=== PATIENT | female | born 1955 | race Two or more races ===

== ENCOUNTER 2017-01-23 15:15 | Outpatient (RCR) | payer OTHER ==
--- NOTE | 2016-12-22 16:07 | PT PLAN OF CARE ---
Physician: JUDY Yañez Patient is being seen: 2x/Week Therapist: Madeline Harvey, PT, DPT, CLT Medical Diagnosis: Endometrioid Adenocarcinoma Treatment Diagnosis: Endometrioid Adenocarcinoma Date of Onset: 08/16/16 Date of Initial Evaluation: 08/18/16 Date patient was last seen: 12/22/16 Number of treatments: 9 Number of cancellations/No shows: 0 OBJECTIVE: Strength: LE MMT: 08/18/16: All motions tested at 5/5 excluding R hip flexion at 4+/5. LE MMT: 09/12/16: Hip: Flexion: B 4+/5, Extension: L 3+/5, R 4/5, ABD/ADD: B 5/5 , Knee: Flexion/Ext: B 5/5, Ankle: PF: L 5/5, R 4+/5, DF: B 5/5. Sensation: Sensation intact to light touch with complaints of numbness or tingling in B UE> LE. Pain: Pt reports mild neuropathic pain in fingers and toes B at this time. Other Objective Findings: ECOG Performance Level: 2 08/18/16: FACT-G Outcome Measure Score: PWB: 28/, SWB: 23, EWB: , FWB: , Total Score: 83/108 09/12/16: FACT-G Outcome Measure Score: PWB: 26/, SWB: 22.4/, EWB: 20, FWB : 18.5/, Total Score: 86.9/108 10/24/16: FACT-G Outcome Measure Score: PWB: 18/, SWB: 18.7/, EWB: , FWB: 12/23, Total Score: 65.7/108 11/14/16: FACT-G Outcome Measure Score: PWB: 19.8/, SWB: 15.4/, EWB: , FWB: 13, Total Score: 65.23/108 11/28/16: FACT-G Outcome Measure Score: PWB: 12/, SWB: , EWB: , FWB : 01/23, Total Score: 60/108 Pt reports dizziness and nausea that is present cyclically following chemotherapy intervention lasting 4-5 days before subsiding. Short Term Goals To maintain current functional status throughout oncological treatment. To maintain strength level >4/5 in all major LE muscle groups throughout treatment for functional ability to perform work and ADL's. To maintain FACT-G Total Score: >83/108 indicating maintenance of functional status. To maintain ECOG Performance Status of 2 or less throughout treatment for maintenance of function and activity for increased vitality throughout treatment. Patient's Goals Maintain function throughout oncological treatment. ASSESSMENT: Status of Patient's Goals: All In Progress Patient Compliance: Good Prognosis: Good Reasons for continuing therapy: Pt was negative for Fidel Halpike screening B as well as screening of horizontal canals. Nystagmus remains present at rest as well as with lateral gaze tracking to the L, but otherwise absent. Dizziness was present throughout treatment. Nystagmus seemed to increase with change in activity so pt BP and HR response were monitored with increased exercise resulting in good response and likely not contributing to dizziness. Recent MRI revealed orbital inflammation as well as small cerebellar tumor which could each possibly be contributing to vestibular hypofunctioning. Pt referred back to oncology [facility] for possible medical interventions to decrease orbital inflammation as well as to button clamper for screening of hearing loss from chemo toxicity. Pt to be screened at next visit for symptoms of cerebellar dysfunction. If you have any questions or concerns, please feel free to contact me at . Thank you, Madeline Harvey, PT, DPT, CLT MTDD
[~2017-01-23 15:15] MED LIST: AMOX-559 PO; DEX4 PO; IBUP200C71 PO; LEVO125T77 PO; LEVO75TA73 PO; LORA-1455 PO; ONDA8TAB94 PO; PANT40TA65 PO; SCOT TD; SERT25TA87 PO; TRIA15CR40 TP; ZOST19404 SQ
[2017-01-23] MEDS ORDERED: ONDA8TAB94 PO (15:16)
--- NOTE | 2017-01-23 17:13 | PT PLAN OF CARE ---
Physician: JUDY Yañez Patient is being seen: 1x/MO Therapist: Madeline Harvey, PT, DPT, CLT Medical Diagnosis: Endometrial Carcinoma Treatment Diagnosis: Endometrial Carcinoma, Neuropathy Date of Onset: 08/16/16 Date of Initial Evaluation: Date patient was last seen: 01/23/17 Number of treatments: 12 Number of cancellations/No shows: 1 GOALS: To maintain current functional status throughout oncological treatment. In Progress To maintain strength level >4/5 in all major LE muscle groups throughout treatment for functional ability to perform work and ADL's. MET To maintain FACT-G Total Score: >83/108 indicating maintenance of functional status. In Progress To maintain ECOG Performance Status of 2 or less throughout treatment for maintenance of function and activity for increased vitality throughout treatment. MET PATIENT'S GOAL: Maintain function throughout oncological treatment. Status of Patient's Goals: 2/4 Goals MET Patient Compliance: Good Prognosis: Good Reasons for continuing therapy: At this time pt reports that she feels that she is about 50% of her initial functional status prior to initiating treatment. Lingering deficits remain in fatigue, dizziness, neuropathy, and decreased posture coupled with pelvic dysfunction. Further treatment will focus on regaining acquired deficits as well as minimizing lingering side-effects. Pt to initiate more frequent PT following final radiation treatment in January. OBJECTIVE: Strength: LE MMT: 08/18/16: All motions tested at 5/5 excluding R hip flexion at 4+/5. LE MMT: 09/12/16: Hip: Flexion: B 4+/5, Extension: L 3+/5, R 4/5, ABD/ADD: B 5/5 , Knee: Flexion/Ext: B 5/5, Ankle: PF: L 5/5, R 4+/5, DF: B 5/5. Sensation: Sensation intact to light touch with complaints of numbness or tingling in B UE> LE. Pain: Pt reports mild neuropathic pain in fingers and toes B at this time. Other Objective Findings: ECOG Performance Level: 2 08/18/16: FACT-G Outcome Measure Score: PWB: , SWB: , EWB: 18, FWB: , Total Score: 83/108 09/12/16: FACT-G Outcome Measure Score: PWB: , SWB: 22.4, EWB: 20, FWB : 18.5, Total Score: 86.9/108 10/24/16: FACT-G Outcome Measure Score: PWB: 18, SWB: 18.7, EWB: , FWB: 12/23, Total Score: 65.7/108 11/14/16: FACT-G Outcome Measure Score: PWB: 19.8, SWB: 15.4, EWB: , FWB: , Total Score: 65.23/108 11/28/16: FACT-G Outcome Measure Score: PWB: 02/22, SWB: , EWB: , FWB : 01/23, Total Score: 60/108 01/23/17: FACT-G Outcome Measure Score: PWB: 01/23, SWB: , EWB: , FWB : , Total Score: 64/108 If you have any questions or concerns, please feel free to contact me at . Thank you, Madeline Harvey, PT, DPT, CLT MTDD
[2017-02-15] MEDS ORDERED: LEVO125T77 PO ×2 (13:29→13:30)
== END 2017-01-23 18:00 | disposition home or self-care (01) ==
LOC: PT 15:15
PROVIDERS: ATTEND Nurse Practitioner Family
DX: C54.1 Malignant neoplasm of endometrium (principal); R42 Dizziness and giddiness; R11.0 Nausea

== ENCOUNTER 2017-03-27 10:57 | Outpatient (RCR) | payer OTHER ==
[2017-01-16 10:15] LABS: PLATELET COUNT, AUTOMATED 77 K/uL (150-450)
[2017-01-16 11:39] VITALS: BP 122/82
[2017-01-23 14:40] VITALS: BP 94/65
--- NOTE | 2017-01-23 14:46 | ONC Progress Note - NP.Halsey ---
Patient History Date of Service Jan 23, 2017 Reason For Visit/HPI Patient is seen in the clinic today for follow-up of her stage IIIc 2 endometrial carcinoma. Patient has completed chemotherapy and external beam radiation therapy treatment on 01/10/2017. Patient was unable to complete weekly chemotherapy with cisplatin and did not receive 3 weeks of treatment due to absolute neutrophil count being too low. Patient continues to have a low absolute neutrophil count, today is at 600. Over the holiday patient reports that she experienced some diarrhea, fatigue, fever with chills, increased dizziness. She did not see a medical provider. She reports that the following day symptoms resolved and she is slowly improving at this time. Her daughter is with her today and reports that other family members have had mild symptoms of not feeling well. Patient's main concern reported to the nurse today was the mouth sore on her front lower lip. She reports that she had other mouth sores but they have resolved. She is using Biotene mouthwash and crest mouthwash. She has minimal discomfort in the 1 lesion that is remaining. I explained to her that I thought it was probably related to her low white count. She has not had any recent fever or chills in the last 2 days. She is trying to eat but continues to have taste changes and many foods just do not taste good. She continues to be dizzy off and on and finds that physical therapy helps the most. She does have nausea and continues to take Zofran up to 3 times a day. She is requesting a refill. Problem List (1) Neutropenia associated with mucositis (2) Dizziness (3) Endometrial cancer (4) Nausea Oncology History 1. Stage IIIC2 serous endometrial adenocarcinoma. a. Initial presentation at the end of May 2016 with complaints of abnormal uterine bleeding and right lower quadrant abdominal pain. b. June 27, 2016: Pelvic ultrasound reveals a 28 mm endometrial stripe. This was followed by an endometrial biopsy performed the same day. Pathology from the biopsy revealed evidence of serous adenocarcinoma of the endometrium. c. Patient was referred to Dr. Blount at [facility]. d. July 10, 2016: Robotic total laparoscopic hysterectomy, bilateral pelvic lymph node dissection, and lower periaortic lymph node sampling, as well as diagnostic laparoscopy and lysis of adhesions. Surgical pathology revealed serous carcinoma of the endometrium with invasion into greater than one half of the myometrium (pT1b). There was evidence of lymphovascular invasion, but margins were negative for tumor. The bilateral fallopian tubes, bilateral ovaries, ectocervix, endocervix and parametrial tissues were histologically unremarkable. Left pelvic lymph node biopsy revealed no lymph nodes, but benign fibroadipose tissue. Right pelvic lymph node biopsy revealed one benign reactive lymph node. A biopsy of a paraaortic lymph node unfortunately was positive for metastatic serous carcinoma. e. July 11, 2016 CT PET: No concerning findings above the diaphragm; free intraperitoneal air as well as subcutaneous air felt likely secondary to recent surgery; multiple hypermetabolic retroperitoneal lymph nodes in the bilateral periaortic region, retrocaval region consistent with metastasis; service representative right periaortic lymph node measured 11 x 11 mm with max SUV of 6.8; in the pelvis there were multiple hypermetabolic right common iliac and bilateral medial external iliac lymph nodes consistent with metastasis; a service representative right medial external iliac note measured 24 x 18 mm with SUV max of 12.6. There was no evidence of bony metastatic disease. f. September 04, 2016 CT chest, abdomen and pelvis: No evidence of metastatic disease in the chest; several bilateral borderline prominent lymph nodes in the lower abdomen and pelvis are suspicious for lymphatic metastatic disease; no additional metastatic disease is identified. g. September 12, 2016: Patient initiates chemotherapy with carboplatin and paclitaxel. h: November 23, 2016: CT of the abdomen and pelvis reveals the previously noted retroperitoneal lymphadenopathy has markedly improved, all of the lymph nodes have decreased in size and many are barely perceptible at this time. A 4.6 mm area of enhancement in the right lobe of the liver has remained stable, as well as a 6 mm hypodense nodule in the left adrenal. There is mild diffuse hepatic steatosis, and some mild thickening of the wall of the rectum and distal colon. i. November 28: Initiation of weekly cisplatin, administered with radiation therapy per Dr. cMkee; complete December 2016. Patient developed neutropenia and was unable to complete all scheduled weekly cisplatin therapies. Patient is being monitored for continued neutropenia. Absolute neutrophil count is 600 today. Medical History Family History: FH: aneurysm FATHER FH: hyperlipidemia MOTHER FH: melanoma BROTHER OR SISTER Psychosocial History Social History Patient is a never smoker. She does not drink alcohol. There is a history of illicit drug use. She works at the [employer], but is currently on long-term disability. Smoking History: Yes (OCC[employer]IONAL SOC[employer] SMOK[employer]) Smoking Status: Former Smoker Medications and Allergies Active Scripts Ondansetron (ZOFRAN ODT) 8 Mg Tab.rapdis, 8 MG PO Q8H, #90 TAB 1 Refill Prov:DEONTE PEREZ [facility]-, ONC 01/23/17 Scopolamine (TRANSDERM-SCOP) 1.5 Mg Patch, 1.5 MG TD q 3 days for 3 Days, #5 PATCH 0 Refills Prov:DEONTE PEREZ [facility] ONC 01/02/17 Dexamethasone 4 Mg Tab (DEXAMETHASONE 4 MG TAB) 4 Mg Tab, 8 MG PO DAILY for 3 Days, #36 TAB Take t tabs (8mg) po daily on days 2-4 following cisplatin dose done weekly Prov:DEONTE PEREZ [facility] ONC 11/27/16 Dexamethasone 4 Mg Tab (DEXAMETHASONE 4 MG TAB) 4 Mg Tab, 8 MG PO DAILY for 3 Days, #6 TAB Take 8mg daily on days 2-4 post chemotherapy for delayed nausea with each cycle. Prov:DEONTE PEREZ [facility] ONC 11/15/16 Lorazepam (ATIVAN) 0.5 Mg Tablet, 0.5 MG PO Q4-6H Y for NAUSEA for 30 Days, #30 TAB 0 Refills Prov:DEONTE PEREZ [facility], ONC 08/18/16 Reported Medications Levothyroxine Sodium (SYNTHROID) 125 Mcg Tablet, 125 MCG PO QDAY 09/20/16 Sertraline Hcl (ZOLOFT) 25 Mg Tablet, 1 TAB PO QDAY, TAB 08/02/16 Allergies: Coded Allergies: codeine (Unverified Allergy, Unknown, N&V, 12/05/13) Uncoded Allergies: NARCOTICS (Adverse Reaction, Mild, SENSITIVITY TO PAIN MEDICATIONS, 08/28/16) Review of System/Physical Exam Review of Systems All Systems Reviewed/Normal: Yes, Except as Noted Constitutional: Positive for Appetite/Weight Change (noted for taste changes) Gastrointestinal: Nausea, Diarrhea Hematologic: Positive for Fatigue, Positive for Weakness Neurologic: Other (dizziness) Physical Exam Vital Signs Temperature: 97.1 Pulse: 77 BP Systolic: 94 BP Diastolic: 65 Respiratory Rate: 16 O2 SAT: 94 O2 Delivery: Height (inches) 60.00 Weight lb: 134 Weight oz: Weight Kg (Pete): Pain: 0 ECOG Score: 1 General: Stable, Well Developed, Well Nourished, Not In Acute Distress HEENT: No Trauma, No Conjunctivitis, No Icterus, Mucositis (oral mucositis with one oral mouth lesion noted on the left lower frontal lip appears to be resolving. Good oral hygiene. No signs of other oral lesions), Other (patient has continued dizziness which increases with ambulation. We will continue physical therapy) Neck: Supple Lungs: Clear to Auscultation Heart: Regular Rate, Regular Rhythm, No Gallops Abdomen: Soft and Nontender, No Hepatosplenomegaly, No Masses Extremities: No Cyanosis, No Clubbing, No Edema Lymphadenopathy: No Cervical, No Subclavicular Psychiatric: Mood appears normal, Affect appears normal, Other Skin: No Skin Rashes, No Bruising, No Purpura Diagnostic Studies Diagnostic Studies Laboratory Laboratory Tests 01/16/17 10:00 Laboratory Tests 01/16/17 10:00: White Blood Count 1.2, Red Blood Count 3.01, Hemoglobin 10.9, Hematocrit 31.1, Mean Corpuscular Volume 103.2, Mean Corpuscular Hemoglobin 36.2, Mean Corpuscular Hemoglobin Concent 35.1, Red Cell Distribution Width 17.4, Platelet Count 77, Mean Platelet Volume 8.0, Neutrophils (%) (Auto) 46.0, Lymphocytes (% ) (Auto) 22.8, Monocytes (%) (Auto) 25.5, Eosinophils (%) (Auto) 4.7, Basophils (%) (Auto) 1.0, Nucleated RBC Relative Count (auto) 0.1, Neutrophils # (Auto) 0.6, Lymphocytes # (Auto) 0.3, Monocytes # (Auto) 0.3, Eosinophils # (Auto) 0.1 , Basophils # (Auto) 0.0, Nucleated RBC Absolute Count (auto) 0.00, Peripheral Blood Smear Yes Assessment and Plan Assessment & Plan Stage III C2 endometrial carcinoma. Patient has completed chemotherapy followed by chemoradiation. She unfortunately had to miss her final 2 weekly infusions of cisplatin due to cytopenia. She has continued neutropenia and thrombocytopenia which is slowly improving. She continues to report dizziness with improvement post physical therapy manipulation. Nausea continues and she is taking Zofran 3 times a day. She does have some mild neuropathy in her fingers and toes. She is scheduled for brachii therapy implant the January in [place]. This is scheduled with Dr. Mckee. She will follow weekly with CBC to monitor her ANC. I will add a chemistry panel and magnesium level with her next lab draw. She will follow with myself in February and will follow with Dr. Nguyen after that. I will see her as needed in the clinic for continued symptom management. At this time it is appropriate for patient to be on continued disability until her symptoms significantly improve and resolve. I personally spent a total of 20 minutes. Of that 15 minutes was counseling/ coordination of patient's care. See my note above for details. Copies to: MICHI CH APRN-C DEONTE PEREZ-BC, ONC Jan 23, 2017 14:45
[2017-01-23 17:09] VITALS: BP 108/65
[2017-01-30 10:13] LABS: PLATELET COUNT, AUTOMATED 151 K/uL (150-450)
[2017-02-13 09:55] LABS: PLATELET COUNT, AUTOMATED 155 K/uL (150-450)
[2017-03-23 08:32] LABS: PLATELET COUNT, AUTOMATED 146 K/uL (150-450)
[2017-03-27] MEDS ORDERED: LORA-1455 PO (14:10)
[2017-03-27] MEDS ORDERED: ACET-1966 PO (14:10)
[2017-03-27] MEDS ORDERED: IBUP200C71 PO (14:18)
== END 2017-04-15 ==
LOC: RAON 10:57
PROVIDERS: ATTEND Radiology Radiation Oncology
DX: C54.1 Malignant neoplasm of endometrium (principal); Z92.3 Personal history of irradiation; Z92.21 Personal history of antineoplastic chemotherapy; D70.9 Neutropenia, unspecified; D69.6 Thrombocytopenia, unspecified; R11.0 Nausea; G62.9 Polyneuropathy, unspecified; R53.83 Other fatigue; R53.1 Weakness; Z79.899 Other long term (current) drug therapy; Z87.891 Personal history of nicotine dependence
CPT/HCPCS: 36415; 36591; 82040; 82247; 82310; 82374; 82435; 82565; 82947; 84075; 84132; 84155; 84295; 84450; 84460; 84520; 85025; 99212; 99213

== ENCOUNTER 2017-05-04 09:30 | Outpatient (RCR) | payer OTHER ==
[2017-02-15 10:33] VITALS: BP 97/64
--- NOTE | 2017-02-15 10:47 | ONC Progress Note - NP.Halsey ---
Patient History Date of Service Feb 15, 2017 Reason For Visit/HPI Patient is seen in the clinic today for follow-up of her endometrial carcinoma. Patient completed brachytherapy on 02/08/[address] Mckee in [place]. Patient denies any pelvic discomfort, or bleeding. She is scheduled to follow in one month for pelvic exam. Today she continues to have nausea off and on, and dizziness. She has not eaten yet today and has not drink any fluids that she woke up 30 minutes prior to her appointment time. Her daughter is with her today. She continues to work hard on maintaining nutrition. She denies any abdominal pain. She currently is on long-term disability and does not plan to go back to work if she does not have to. She is no longer receiving physical therapy. He has not followed with her primary care provider since diagnosis and has not had thyroid levels checked, cholesterol levels or breast exam. Problem List (1) Nausea (2) Dizziness (3) Endometrial cancer Oncology History 1. Stage IIIC2 serous endometrial adenocarcinoma. a. Initial presentation at the end of May 2016 with complaints of abnormal uterine bleeding and right lower quadrant abdominal pain. b. June 27, 2016: Pelvic ultrasound reveals a 28 mm endometrial stripe. This was followed by an endometrial biopsy performed the same day. Pathology from the biopsy revealed evidence of serous adenocarcinoma of the endometrium. c. Patient was referred to Dr. Blount at [facility]. d. July 10, 2016: Robotic total laparoscopic hysterectomy, bilateral pelvic lymph node dissection, and lower periaortic lymph node sampling, as well as diagnostic laparoscopy and lysis of adhesions. Surgical pathology revealed serous carcinoma of the endometrium with invasion into greater than one half of the myometrium (pT1b). There was evidence of lymphovascular invasion, but margins were negative for tumor. The bilateral fallopian tubes, bilateral ovaries, ectocervix, endocervix and parametrial tissues were histologically unremarkable. Left pelvic lymph node biopsy revealed no lymph nodes, but benign fibroadipose tissue. Right pelvic lymph node biopsy revealed one benign reactive lymph node. A biopsy of a paraaortic lymph node unfortunately was positive for metastatic serous carcinoma. e. July 11, 2016 CT PET: No concerning findings above the diaphragm; free intraperitoneal air as well as subcutaneous air felt likely secondary to recent surgery; multiple hypermetabolic retroperitoneal lymph nodes in the bilateral periaortic region, retrocaval region consistent with metastasis; bilingual inside sales representative right periaortic lymph node measured 11 x 11 mm with max SUV of 6.8; in the pelvis there were multiple hypermetabolic right common iliac and bilateral medial external iliac lymph nodes consistent with metastasis; a bilingual inside sales representative right medial external iliac note measured 24 x 18 mm with SUV max of 12.6. There was no evidence of bony metastatic disease. f. September 04, 2016 CT chest, abdomen and pelvis: No evidence of metastatic disease in the chest; several bilateral borderline prominent lymph nodes in the lower abdomen and pelvis are suspicious for lymphatic metastatic disease; no additional metastatic disease is identified. g. September 12, 2016: Patient initiates chemotherapy with carboplatin and paclitaxel. h: November 23, 2016: CT of the abdomen and pelvis reveals the previously noted retroperitoneal lymphadenopathy has markedly improved, all of the lymph nodes have decreased in size and many are barely perceptible at this time. A 4.6 mm area of enhancement in the right lobe of the liver has remained stable, as well as a 6 mm hypodense nodule in the left adrenal. There is mild diffuse hepatic steatosis, and some mild thickening of the wall of the rectum and distal colon. i. November 28: Initiation of weekly cisplatin, administered with radiation therapy per Dr. Mckee; complete December 2016 j. Brachytherapy completed in [place] with Dr. Mckee 02/08/2017. Medical History Family History: FH: aneurysm FATHER FH: hyperlipidemia MOTHER FH: melanoma BROTHER OR SISTER Psychosocial History Social History Patient is a never smoker. She does not drink alcohol. There is a history of illicit drug use. She worked at the [employer] but is currently on disability. Smoking History: Yes (OCCASSIONAL SOCIAL SMOKER) Smoking Status: Former Smoker Medications and Allergies Active Scripts Ondansetron (ZOFRAN ODT) 8 Mg Tab.rapdis, 8 MG PO Q8H, #90 TAB 1 Refill Prov:DEONTE PEREZ ROBOTIC MACHINE OPERATOR-BC, ONC 01/23/17 Reported Medications Levothyroxine Sodium (SYNTHROID) 125 Mcg Tablet, 125 MCG PO QDAY 09/20/16 Sertraline Hcl (ZOLOFT) 25 Mg Tablet, 1 TAB PO QDAY, TAB 08/02/16 Discontinued Scripts Scopolamine (TRANSDERM-SCOP) 1.5 Mg Patch, 1.5 MG TD q 3 days for 3 Days, #5 PATCH 0 Refills Prov:DEONTE PEREZ ROBOTIC MACHINE OPERATOR-BC, ONC 01/02/17 Dexamethasone 4 Mg Tab (DEXAMETHASONE 4 MG TAB) 4 Mg Tab, 8 MG PO DAILY for 3 Days, #36 TAB Take t tabs (8mg) po daily on days 2-4 following cisplatin dose done weekly Prov:DEONTE PEREZ [facility]-BC, ONC 11/27/16 Dexamethasone 4 Mg Tab (DEXAMETHASONE 4 MG TAB) 4 Mg Tab, 8 MG PO DAILY for 3 Days, #6 TAB Take 8mg daily on days 2-4 post chemotherapy for delayed nausea with each cycle. Prov:ANADEONTE Paul ROBOTIC MACHINE OPERATOR-BC, ONC 11/15/16 Lorazepam (ATIVAN) 0.5 Mg Tablet, 0.5 MG PO Q4-6H Y for NAUSEA for 30 Days, #30 TAB 0 Refills Prov:ANADEONTE [facility]-BC, ONC 08/18/16 Allergies: Coded Allergies: codeine (Unverified Allergy, Unknown, N&V, 12/05/13) Uncoded Allergies: NARCOTICS (Adverse Reaction, Mild, SENSITIVITY TO PAIN MEDICATIONS, 08/28/16) Review of System/Physical Exam Review of Systems All Systems Reviewed/Normal: Yes, Except as Noted Gastrointestinal: Nausea Hematologic: Positive for Fatigue, Positive for Weakness Neurologic: Other (dizziness which continues. It had improved with physical therapy) Skin: Positive for Other Physical Exam Vital Signs Temperature: 97.3 Pulse: 75 BP Systolic: 97 BP Diastolic: 64 Respiratory Rate: 16 O2 SAT: 97 O2 Delivery: Height (inches) 60.00 Weight lb: 134 Weight oz: Weight Kg (Pete): [phone] Pain: 0 ECOG Score: 1 General: Stable, Well Developed, Well Nourished, Not In Acute Distress Lungs: Clear to Auscultation Heart: Regular Rate, Regular Rhythm, No Gallops, No Murmurs Abdomen: Soft and Nontender, No Hepatosplenomegaly, Other (bowel sounds are active) Psychiatric: Mood appears normal, Affect appears normal Skin: No Skin Rashes, No Bruising, No Purpura Diagnostic Studies Diagnostic Studies Laboratory Item Value Date Time White Blood Count 2.0 k/uL *L 02/13/17 0947 Red Blood Count 3.13 M/uL L 02/13/17 0947 Hemoglobin 11.2 g/dL L 02/13/17 0947 Hematocrit 32.5 % L 02/13/17 0947 Mean Corpuscular Volume 103.9 fL H 02/13/17 0947 Mean Corpuscular Hemoglobin 35.9 pg H 02/13/17 0947 Red Cell Distribution Width 16.5 % H 02/13/17 0947 Random Glucose 123 mg/dl H 01/10/17 1030 Total Cholesterol 241 mg/dl H 06/03/15 0800 LDL Cholesterol 155 mg/dl H 06/03/15 0800 Beta-Very Low Density Cholesterol 153 mg/dl H 11/27/13 0800 Thyroid Stimulating Hormone (TSH) 0.220 mcU/ml L 06/03/15 0800 Assessment and Plan Assessment & Plan Stage IIIC2 endometrial carcinoma. Patient has completed chemoradiation. Brachytherapy with Dr. Mckee was completed on 02/08/2017 in [place]. She unfortunately had to miss her final two weekly infusions of cisplatin due to cytopenias. Her absolute neutrophil count has improved to 1000, hemoglobin 11.2 , white cell count 2.0. This is improved from previous. Patient continues to report dizziness that comes and goes, she did have improvement with physical therapy but this has been discontinued. She has not eaten today and is encouraged to eat on a regular basis and drink plenty of fluids to see if this helps. Patient continues to use Zofran as needed for nausea. She is encouraged to follow with her primary care regarding survival care to include cholesterol management, thyroid management and breast exams with mammograms. Patient will follow with Dr. Nguyen in February. She will also follow with Dr. Giang for a pelvic exam in February. I will have patient complete CBC and CMP prior next office visit. She will require a port flush on a monthly basis until the port is removed. I would be more than happy to see her sooner if there are questions or concerns. I personally spent a total of 30 minutes. Of that 25 minutes was counseling/ coordination of patient's care. See my note above for details. Copies to: MICHI CH APRN-DEONTE GOMEZ-BC, ONC Feb 15, 2017 10:47
[2017-03-23] MEDS: LIDOCAINE/SOD BICARB 8.4% SYR ID PRN (08:15)
[2017-03-23] MEDS: HEPARIN FLSH (PORT) 500 UN/5ML IVP PRN (09:35)
[2017-03-23 09:38] VITALS: BP 97/64
--- NOTE | 2017-03-23 09:50 | RADIOLOGY IMAGING REPORT ---
FACILITY: [facility] - [place] PATIENT NAME: Stephanie Landeros : 1955 MR: [id number] V: [id number] EXAM DATE: ORDERING PHYSICIAN: DEONTE PEREZ TECHNOLOGIST: Location: [facility] - [place] Patient: Stephanie Landeros : 1955 Visit/Account:[id number] Date of Sevice: 03/23/2017 EXAMINATION: MRI Brain without IV contrast MRI Brain with IV contrast HISTORY: Endometrial cancer. Dizziness. Confusion. COMPARISON: Brain MRI dated 12/20/2016. TECHNIQUE: Multi-planar, multi-sequence brain MRI was performed before and after IV gadolinium. CONTRAST: 11 mL of IV MultiHance FINDINGS: Brain volume: Normal. Sagittal midline structures: Negative. Ventricles: Negative. Acute ischemic changes: None. Hemorrhage: Slightly increased size of a 5 mm focus of magnetic susceptibility in the medial left pa rietal lobe (series 6, image 16), previously measuring 2 mm. No evidence of acute intracranial hemorr fred. Masses / edema: Stable 6 mm cyst in the medial right cerebellum with T1 hypointensity, T2 hyperinten sity, FLAIR hyperintensity, and no enhancement, restricted diffusion, or magnetic susceptibility. Enhancement: Normal. Galvan-white: Negative. White matter: Stable mild chronic microvascular ischemic changes. Vessels: Negative. Extra-axial: None. Calvarium / scalp: Negative. Skull base: Negative. Visualized sinuses / orbits: Negative. Visualized upper neck: Negative. IMPRESSION: 1. Slightly increased size of a 5 mm focus of magnetic susceptibility in the medial left parietal lob e (series 6, image 16), previously measuring 2 mm. Follow-up brain MRI in 2-3 months is recommended. This could potentially represent a hemorrhagic metastasis or cavernous malformation. 2. Stable complex cyst in the right cerebellum measuring 6 mm. Report Dictated By: Gopi Horner MD at 03/23/2017 9:35 AM Report E-Signed By: Gopi Horner MD at 03/23/2017 9:44 AM WSN:[id number]
[2017-03-28 11:36] VITALS: BP 110/73
--- NOTE | 2017-03-28 18:18 | ONCOLOGY FOLLOW UP NOTE ---
EVENT DATE: March 28, 2017 REASON FOR FOLLOWUP Stage IIIC2 endometrial carcinoma. INTERIM HISTORY Stephanie returns to clinic for a follow-up visit today. She is accompanied by her daughter. Since our last visit, she has not been doing well. She reports feeling extremely fatigued, she has had difficulty sleeping, food does not taste good, and she does report ongoing issues with "dizziness," but she is unable to elaborate further. Her mood has gotten consistently worse. She is not finding perico and happiness much at all at this point, but she does enjoy spending time with her grandchildren. Her daughter is quite concerned that she is depressed, and this is getting noticeable worse. She reports diffuse aches and pains, as well. This would include the neck, low back, hips, knees, as well as the joints of the hands bilaterally. REVIEW OF SYSTEMS Otherwise negative, and all systems were reviewed. ONCOLOGIC HISTORY 1. Stage IIIC2 serous endometrial adenocarcinoma. a. Initial presentation at the end of May 2016 with complaints of abnormal uterine bleeding and right lower quadrant abdominal pain. b. June 27, 2016: Pelvic ultrasound reveals a 28 mm endometrial stripe. This was followed by an endometrial biopsy performed the same day. Pathology from the biopsy revealed evidence of serous adenocarcinoma of the endometrium. c. Patient was referred to Dr. Blount at [facility]. d. July 10, 2016: Robotic total laparoscopic hysterectomy, bilateral pelvic lymph node dissection, and lower periaortic lymph node sampling, as well as diagnostic laparoscopy and lysis of adhesions. Surgical pathology revealed serous carcinoma of the endometrium with invasion into greater than one half of the myometrium (pT1b). There was evidence of lymphovascular invasion, but margins were negative for tumor. The bilateral fallopian tubes, bilateral ovaries, ectocervix, endocervix and parametrial tissues were histologically unremarkable. Left pelvic lymph node biopsy revealed no lymph nodes, but benign fibroadipose tissue. Right pelvic lymph node biopsy revealed one benign reactive lymph node. A biopsy of a paraaortic lymph node unfortunately was positive for metastatic serous carcinoma. e. July 11, 2016 CT PET: No concerning findings above the diaphragm; free intraperitoneal air as well as subcutaneous air felt likely secondary to recent surgery; multiple hypermetabolic retroperitoneal lymph nodes in the bilateral periaortic region, retrocaval region consistent with metastasis; disability representative right periaortic lymph node measured 11 x 11 mm with max SUV of 6.8; in the pelvis there were multiple hypermetabolic right common iliac and bilateral medial external iliac lymph nodes consistent with metastasis; a disability representative right medial external iliac note measured 24 x 18 mm with SUV max of 12.6. There was no evidence of bony metastatic disease. f. September 04, 2016 CT chest, abdomen and pelvis: No evidence of metastatic disease in the chest; several bilateral borderline prominent lymph nodes in the lower abdomen and pelvis are suspicious for lymphatic metastatic disease; no additional metastatic disease is identified. g. September 12, 2016: Patient initiates chemotherapy with carboplatin and paclitaxel. h: November 23, 2016: CT of the abdomen and pelvis reveals the previously noted retroperitoneal lymphadenopathy has markedly improved, all of the lymph nodes have decreased in size and many are barely perceptible at this time. A 4.6 mm area of enhancement in the right lobe of the liver has remained stable, as well as a 6 mm hypodense nodule in the left adrenal. There is mild diffuse hepatic steatosis, and some mild thickening of the wall of the rectum and distal colon. i. November 28: Initiation of weekly cisplatin, administered with radiation therapy per Dr. Mckee; complete December 2016. PAST MEDICAL HISTORY 1. Endometrial cancer, as above. 2. Status post repair of meniscus tear of left knee in February 2011. ALLERGIES CODEINE which causes rash. SOCIAL HISTORY Patient is a never smoker. She does not drink alcohol. There is a history of illicit drug use. She works at the [employer]. CURRENT MEDICATIONS 1. Dexamethasone per protocol at the time of her chemotherapy. 2. Ativan p.r.n. 3. Zofran p.r.n. 4. Synthroid 125 mcg daily. VITAL SIGNS Patient is afebrile and vital signs are stable. PHYSICAL EXAMINATION GENERAL: Patient is alert and oriented times three, in no apparent distress sitting in the exam room chair. Her affect is quite flat, and eye contact is fairly minimal. HEENT: Exam reveals anicteric sclerae. NEUROLOGIC: Exam is grossly nonfocal and her gait is normal. EXTREMITIES: Exam reveals no edema, clubbing or cyanosis. No joint deformities are noted. SKIN: Exam reveals no concerning rash or lesion. LABORATORY STUDIES Reviewed per the [facility] record. IMAGING MRI of the brain performed on March 23 reveals a slightly increased size of a 5 mm focus of susceptibility in the medial left parietal lobe, previously measuring 2 mm. A stable complex cyst in the right cerebellum measures 6 mm. ASSESSMENT AND PLAN Stage IIIC2 endometrial carcinoma. I had a good visit with the patient and her daughter today. Symptomatically, she is not doing well. It is quite apparent that she has become rather depressed since our last visit. We discussed whether there could be an element of PTSD happening, as she also seemingly is quite sensitive to loud sounds/noises. Food does not taste good, she is having diffuse musculoskeletal aches and pains, she has lost a bit of weight, she is not sleeping well. We discussed that this is a trajectory that cannot continue. I have strongly recommended that she visit either with psychiatry or potentially neuropsychology. I will refer her to see Dr. Lopez in neuropsychology in [place], and hopefully this visit can happen soon. We moved on to discuss the results of her recent follow-up MRI. The previously noted 2 mm lesion is now slightly larger at 5 mm. As discussed, I am skeptical that this is having any kind of an impact on her current clinical picture. I do think, however, that this will need to be reviewed at the [facility] in [place]. This will happen next week. I will get back to her after we gain an opinion on next steps. Patient is in agreement with the plan put forth today. I will plan on seeing her back in clinic after her follow-up CT scan that has been ordered by Dr. Mckee to be performed in April. I spent a total of 30 minutes of [id number] time with the patient and her daughter today. Twenty-five minutes of this was spent in direct counseling and coordination of care. CARMINE
[2017-04-25 13:33] VITALS: BP 101/60
--- NOTE | 2017-04-25 19:57 | ONCOLOGY FOLLOW UP NOTE ---
EVENT DATE: April 25, 2017 REASON FOR FOLLOWUP 1. Stage IIIC2 endometrial carcinoma. 2. Depression, cognitive decline. INTERIM HISTORY Stephanie returns to clinic for a follow-up visit today. She is accompanied by her daughter. Since our last visit, nothing has really changed. Stephanie has not undergone follow-up imaging, and she has not had a visit to address her ongoing depression and cognitive status. She reports that she had an appointment scheduled for today for neurocognitive testing, but that she canceled the visit because of her appointment with me. She reports no fevers, chills or sweats. She has had no new pain. Her appetite is fair, and her weight has been pretty stable. She is not getting much physical activity at all. Her mood remains about the same. She has not been going to the gym, but her daughter is trying to convince her to go back. The patient really does not feel like being around other people at this point. She does have some ongoing dizziness, as well. She does have some arthralgias, but these have not changed significantly. REVIEW OF SYSTEMS Otherwise negative, and all systems were reviewed. ONCOLOGIC HISTORY 1. Stage IIIC2 serous endometrial adenocarcinoma. a. Initial presentation at the end of May 2016 with complaints of abnormal uterine bleeding and right lower quadrant abdominal pain. b. June 27, 2016: Pelvic ultrasound reveals a 28 mm endometrial stripe. This was followed by an endometrial biopsy performed the same day. Pathology from the biopsy revealed evidence of serous adenocarcinoma of the endometrium. c. Patient was referred to Dr. Blount at [facility]. d. July 10, 2016: Robotic total laparoscopic hysterectomy, bilateral pelvic lymph node dissection, and lower periaortic lymph node sampling, as well as diagnostic laparoscopy and lysis of adhesions. Surgical pathology revealed serous carcinoma of the endometrium with invasion into greater than one half of the myometrium (pT1b). There was evidence of lymphovascular invasion, but margins were negative for tumor. The bilateral fallopian tubes, bilateral ovaries, ectocervix, endocervix and parametrial tissues were histologically unremarkable. Left pelvic lymph node biopsy revealed no lymph nodes, but benign fibroadipose tissue. Right pelvic lymph node biopsy revealed one benign reactive lymph node. A biopsy of a paraaortic lymph node unfortunately was positive for metastatic serous carcinoma. e. July 11, 2016 CT PET: No concerning findings above the diaphragm; free intraperitoneal air as well as subcutaneous air felt likely secondary to recent surgery; multiple hypermetabolic retroperitoneal lymph nodes in the bilateral periaortic region, retrocaval region consistent with metastasis; welding equipment sales representative right periaortic lymph node measured 11 x 11 mm with max SUV of 6.8; in the pelvis there were multiple hypermetabolic right common iliac and bilateral medial external iliac lymph nodes consistent with metastasis; a welding equipment sales representative right medial external iliac note measured 24 x 18 mm with SUV max of 12.6. There was no evidence of bony metastatic disease. f. September 04, 2016 CT chest, abdomen and pelvis: No evidence of metastatic disease in the chest; several bilateral borderline prominent lymph nodes in the lower abdomen and pelvis are suspicious for lymphatic metastatic disease; no additional metastatic disease is identified. g. September 12, 2016: Patient initiates chemotherapy with carboplatin and paclitaxel. h: November 23, 2016: CT of the abdomen and pelvis reveals the previously noted retroperitoneal lymphadenopathy has markedly improved, all of the lymph nodes have decreased in size and many are barely perceptible at this time. A 4.6 mm area of enhancement in the right lobe of the liver has remained stable, as well as a 6 mm hypodense nodule in the left adrenal. There is mild diffuse hepatic steatosis, and some mild thickening of the wall of the rectum and distal colon. i. November 28: Initiation of weekly cisplatin, administered with radiation therapy per Dr. Mckee; complete December 2016. PAST MEDICAL HISTORY 1. Endometrial cancer, as above. 2. Status post repair of meniscus tear of left knee in February 2011. ALLERGIES CODEINE which causes rash. SOCIAL HISTORY Patient is a never smoker. She does not drink alcohol. There is a history of illicit drug use. She works at the [employer]. CURRENT MEDICATIONS 1. Dexamethasone per protocol at the time of her chemotherapy. 2. Ativan p.r.n. 3. Zofran p.r.n. 4. Synthroid 125 mcg daily. VITAL SIGNS Temperature is 96.9, blood pressure 101/60, heart rate is 75, respirations 16, oxygen saturation is 92% on room air. Weight is 55.2 kg. PHYSICAL EXAMINATION GENERAL: Patient is alert and oriented times three, in no apparent distress sitting in the exam room chair. She is quiet, and eye contact is less than average. She is interactive and pleasant, however. HEENT: Exam reveals anicteric sclerae. NEUROLOGIC: Exam is grossly nonfocal and her gait is normal. Her affect is flat. EXTREMITIES: Exam reveals no edema, clubbing or cyanosis. SKIN: Exam reveals no concerning rash or lesion. ASSESSMENT AND PLAN 1. Endometrial cancer. I visited with Stephanie and her daughter today. Unfortunately, we have hit roadblocks with her imaging plans. I have had difficulty communicating with her insurance company for authorization/peer-to- peer for a CT PET scan. We discussed this in detail. We have decided at this point to send her for a CT scan of the chest, abdomen, and pelvis with contrast. Also, I do think it would be hahn for her to go for a follow-up MRI of the brain in the next one to two weeks, given the increase in size of the indeterminate solitary brain lesion. At this point, I am skeptical that her neurological status is directly liked to that finding. We discussed how we will be communicating about her follow-up imaging. I will call her on the phone with the results of her upcoming scans, but her imaging will be reviewed at a minimum at the [facility] in [place]. 2. Cognitive decline/depression. Unfortunately, Stephanie has not had an appointment with Neuropsychology. Apparently, she did have a visit scheduled for today, but she canceled this to come to her appointment with me here in [place]. The patient seems somewhat disinclined to travel to [place] at this point. Her daughter would prefer that she visit with Sandrine Galvan here in [place], who I believe is a psychologist. We will look into making a referral. Hopefully this can happen quickly. I have asked the patient and her daughter to contact me if there are any further delays, and we will help them work through it. CARMINE
[~2017-05-04] VITALS: Ht 152.4 cm; Wt 55.2 kg
[~2017-05-04 09:30] MED LIST changes: +ACET-1966 PO; +ALTEPLASE RECOMB 2 MG VIAL IVP PRN; +DEXTROSE 5%(*) 100 ML BAG 100 ML IVPB PRN; +GADOBENATE 529MG/1ML 15ML VIAL IVP ONE; +NS(*) 0.9% 100 ML BAG 100 ML IVPB PRN; +NS(*) 0.9% 500 ML BAG 500 ML IV PRN; +WATER STERILE 10 ML VIAL IVP PRN
[2017-05-04] MEDS: LIDOCAINE/SOD BICARB 8.4% SYR ID PRN (09:30)
[2017-05-04 09:39] VITALS: BP 108/80
[2017-05-04] MEDS: HEPARIN FLSH (PORT) 500 UN/5ML IVP PRN (10:00)
[2017-05-04] MEDS ORDERED: IOPAMIDOL 76% 75 ML INFUS BTL 75 ML ONE (10:22)
--- NOTE | 2017-05-04 12:22 | RADIOLOGY IMAGING REPORT ---
[place] [facility] [place] NAME: Stephanie Landeros : 1955 MR: [id number] V: [id number] EXAM DATE: ORDERING PHYSICIAN: MELANIE WEAVER TECHNOLOGIST: Location: [facility] Patient: Stephanie Landeros : 1955 Visit/Account:[id number] Date of Sevice: 05/04/2017 ADDENDUM #1 Dose Lowering Technique One of the following dose optimization techniques was utilized in the performance of this exam: Autom ated exposure control; adjustment of the mA and/or kV according to the patient's size; or use of an i terative reconstruction technique. Specific details can be referenced in the facility's radiology C T exam operational policy. Report Dictated By: Robyn Camara MD at 05/09/2017 5:19 PM Report E-Signed By: Robyn Camara MD at 05/09/2017 5:20 PM ORIGINAL REPORT ABDOMEN/PELVIS W/WO CONTRAST HISTORY: Endometrial cancer TECHNIQUE: Axial images acquired through the abdomen/pelvis both with and without IV contrast.. Jerry nal and sagittal reformatting also performed. CONTRAST: 75 mL Isovue-370 COMPARISON: November 15, 2016 FINDINGS: Visualized lung bases: Negative. Hepatobiliary: Negative. Spleen: Negative. Adrenals: 6 mm hypodense nodule in the left adrenal gland remains stable. Right adrenal gland is un remarkable Pancreas: Negative. Kidneys ureters and bladder: Tiny hypodensities in the right kidney have remained stable and are too small to characterize by CT. Bladder wall is mildly thickened although may be related to underdistention with urine Genitalia: Postsurgical changes from a hysterectomy GI: Mild thickening of the wall the rectum is again noted Vessels/spaces/nodes: There Is a trace amount of free pelvic fluid. No pathologic-appearing adenopat hy is identified in the abdomen or pelvis at this time Bones/soft tissues: No aggressive appearing bone lesions are seen. There are spondylotic changes in the lower lumbar spine Additional findings: None pertinent. IMPRESSION: Six micrometer hypodense nodule left adrenal gland has remained stable may simply represent a small a denoma or myelolipoma although too small to characterize by CT. Mild thickening of the wall the rectum is again noted Trace amount of free pelvic fluid Postsurgical changes from hysterectomy with no evidence of metastatic disease at this time Report Dictated By: Robyn Camara MD at 05/04/2017 12:05 PM Report E-Signed By: Robyn Camara MD at 05/04/2017 12:17 PM WSN:[id number]
== END 2017-05-14 ==
LOC: SPU 09:30
PROVIDERS: ATTEND Internal Medicine Medical Oncology
DX: Z85.42 Personal history of malignant neoplasm of other parts of uterus (principal); Z92.21 Personal history of antineoplastic chemotherapy; Z92.3 Personal history of irradiation; R11.0 Nausea; R42 Dizziness and giddiness; Z79.899 Other long term (current) drug therapy; R53.83 Other fatigue; R53.1 Weakness; G93.0 Cerebral cysts; E27.8 Other specified disorders of adrenal gland; Z90.710 Acquired absence of both cervix and uterus
CPT/HCPCS: 70553; 74178; 82565; 99212; A9577; J1642; Q9967

== ENCOUNTER 2017-05-23 10:26 | Outpatient (RCR) | payer OTHER ==
[2017-05-15 08:20] VITALS: BP 111/75
--- NOTE | 2017-05-15 11:40 | RADIOLOGY IMAGING REPORT ---
[place] [facility] [place] NAME: Stephanie Landeros : 1955 MR: [id number] V: [id number] EXAM DATE: ORDERING PHYSICIAN: MELANIE WEAVER TECHNOLOGIST: [place] [facility] [place] Landeros : 1955 Visit/Account:[id number] Date of Sevice: 05/15/2017 EXAMINATION: MRI brain without IV contrast MRI brain with IV contrast HISTORY: Serous endometrioid adenocarcinoma. COMPARISON: Brain MRIs from 12/20/2016 and 03/23/2017. TECHNIQUE: Multi-planar, multi-sequence brain MRI was performed before and after IV gadolinium. CONTRAST: 12 mL of IV MultiHance gadolinium. FINDINGS: Brain volume: Normal. Sagittal midline structures: Normal. Ventricles: Normal. Acute ischemic changes: None. Hemorrhage: 4 mm area of hemosiderin staining in the medial left parietal lobe is the same to slight ly smaller from most recent exam, and minimally larger since 11/2016. No adjacent edema. Masses/edema: 6 mm T2/FLAIR hyperintense cyst in the medial right superior cerebellum is unchanged. No adjacent edema. Enhancement: There is no abnormal enhancement of the right superior cerebellar cyst or the area of he mosiderin staining in the left medial parietal lobe. Galvan-white: Negative. White matter: A few T2/FLAIR hyperintensities in the deep white matter bilaterally. Vessels: Normal. Extra-axial: None. Calvarium/scalp: Negative. Skull base: Negative. Visualized sinuses/orbits: Negative. Visualized upper neck: Negative. IMPRESSION: 1. Hemosiderin staining in the medial left parietal lobe is the same to slightly smaller from most r ecent exam. No adjacent edema or enhancement. This is likely a benign cavernous malformation or the sequela of old trauma. Appearance is not typical for metastasis. 2. 6 mm nonenhancing cyst in the right superior cerebellum is unchanged and is likely benign. 3. No evidence of intracranial metastases, new hemorrhage or acute infarct. 4. Mild nonspecific white matter disease is unchanged and could be due to chronic small vessel ische bijan, chronic migraine headaches, previous inflammation or trauma. Report Dictated By: Maria Del Carmen Vieira MD at 05/15/2017 11:27 AM Report E-Signed By: Maria Del Carmen Vieira MD at 05/15/2017 11:36 AM WSN:[id number]
[~2017-05-23 10:26] MED LIST changes: +HEPARIN FLSH (PORT) 500 UN/5ML IVP PRN; +LIDOCAINE/SOD BICARB 8.4% SYR ID PRN; +WATER FOR INJ,STERILE 20 ML IVP PRN; -WATER STERILE 10 ML VIAL IVP PRN
[2017-05-23 10:31] VITALS: BP 106/69
--- NOTE | 2017-05-23 18:55 | ONCOLOGY FOLLOW UP NOTE ---
EVENT DATE: May 23, 2017 REASON FOR FOLLOWUP 1. Stage IIIC2 endometrial carcinoma. 2. Depression, cognitive decline. INTERIM HISTORY Stephanie returns for a follow-up visit today. She is accompanied by her daughter. Since our last visit, she has established care with a therapist here in town. She reports that things have been going pretty well in this regard, and that it has been helpful. Her mood continues to be fairly depressed, and she continues to have some odd sensations, in particular in the right ear. She feels that many times she can hear too many things "coming in" at the same time. For this reason, she tends to avoid large crowds. She has had less problems with balance. Her daughter seems to think that she is doing a bit better since our last visit. She reports no new pain. She has had no changes in bowel or bladder habits. She reports no shortness of breath, and no productive cough. REVIEW OF SYSTEMS Otherwise negative, and all systems were reviewed. ONCOLOGIC HISTORY 1. Stage IIIC2 serous endometrial adenocarcinoma. a. Initial presentation at the end of May 2016 with complaints of abnormal uterine bleeding and right lower quadrant abdominal pain. b. June 27, 2016: Pelvic ultrasound reveals a 28 mm endometrial stripe. This was followed by an endometrial biopsy performed the same day. Pathology from the biopsy revealed evidence of serous adenocarcinoma of the endometrium. c. Patient was referred to Dr. Blount at [facility]. d. July 10, 2016: Robotic total laparoscopic hysterectomy, bilateral pelvic lymph node dissection, and lower periaortic lymph node sampling, as well as diagnostic laparoscopy and lysis of adhesions. Surgical pathology revealed serous carcinoma of the endometrium with invasion into greater than one half of the myometrium (pT1b). There was evidence of lymphovascular invasion, but margins were negative for tumor. The bilateral fallopian tubes, bilateral ovaries, ectocervix, endocervix and parametrial tissues were histologically unremarkable. Left pelvic lymph node biopsy revealed no lymph nodes, but benign fibroadipose tissue. Right pelvic lymph node biopsy revealed one benign reactive lymph node. A biopsy of a paraaortic lymph node unfortunately was positive for metastatic serous carcinoma. e. July 11, 2016 CT PET: No concerning findings above the diaphragm; free intraperitoneal air as well as subcutaneous air felt likely secondary to recent surgery; multiple hypermetabolic retroperitoneal lymph nodes in the bilateral periaortic region, retrocaval region consistent with metastasis; claim service representative right periaortic lymph node measured 11 x 11 mm with max SUV of 6.8; in the pelvis there were multiple hypermetabolic right common iliac and bilateral medial external iliac lymph nodes consistent with metastasis; a claim service representative right medial external iliac note measured 24 x 18 mm with SUV max of 12.6. There was no evidence of bony metastatic disease. f. September 04, 2016 CT chest, abdomen and pelvis: No evidence of metastatic disease in the chest; several bilateral borderline prominent lymph nodes in the lower abdomen and pelvis are suspicious for lymphatic metastatic disease; no additional metastatic disease is identified. g. September 12, 2016: Patient initiates chemotherapy with carboplatin and paclitaxel. h: November 23, 2016: CT of the abdomen and pelvis reveals the previously noted retroperitoneal lymphadenopathy has markedly improved, all of the lymph nodes have decreased in size and many are barely perceptible at this time. A 4.6 mm area of enhancement in the right lobe of the liver has remained stable, as well as a 6 mm hypodense nodule in the left adrenal. There is mild diffuse hepatic steatosis, and some mild thickening of the wall of the rectum and distal colon. i. November 28: Initiation of weekly cisplatin, administered with radiation therapy per Dr. Mckee; complete December 2016. PAST MEDICAL HISTORY 1. Endometrial cancer, as above. 2. Status post repair of meniscus tear of left knee in February 2011. ALLERGIES CODEINE which causes rash. SOCIAL HISTORY Patient is a never smoker. She does not drink alcohol. There is a history of illicit drug use. She works at the [employer]. CURRENT MEDICATIONS 1. Dexamethasone per protocol at the time of her chemotherapy. 2. Ativan p.r.n. 3. Zofran p.r.n. 4. Synthroid 125 mcg daily. VITAL SIGNS Temperature is 97.3, blood pressure 106/69, heart rate is 63, respirations 16, oxygen saturation is 93% on room air. Weight is 54.8 kg. PHYSICAL EXAMINATION GENERAL: Patient is alert and oriented times three, in no apparent distress sitting in the exam room chair. Her affect is fairly flat, but good eye contact. She is interactive and pleasant. HEENT: Exam reveals anicteric sclerae. NEUROLOGIC: Exam is grossly nonfocal and her gait is normal. EXTREMITIES: Exam reveals no edema, clubbing or cyanosis. SKIN: Exam reveals no concerning rash or lesion. LABORATORY STUDIES Reviewed per the [facility] record. IMAGING CT scan of the abdomen and pelvis performed on May 09, 2017 reveals a stable left adrenal gland nodule, mild thickening of the wall of the rectum, trace free pelvic fluid, and post surgical changes from hysterectomy without evidence of metastatic disease. MRI of the brain performed on May 15, 2017 reveals hemosiderin staining in the medial left parietal lobe, and is the same to slightly smaller from the most recent exam. There is no adjacent edema or enhancement. This is felt to be a benign cavernous malformation or sequelae of old trauma. The appearance is not typical for metastasis. There is a 6 mm nonenhancing cyst in the right superior cerebellum that is unchanged and likely benign. No evidence of intracranial metastasis. ASSESSMENT AND PLAN Endometrial cancer. I had a good visit with Stephanie and her daughter today. She has established care with a therapist in town since our last visit, and this has been pretty helpful for her. She plans to continue with followup. The patient does not acknowledge a significant amount of improvement over the past month or so, but her daughter has noticed some positive changes. I have encouraged her to continue with therapy. We spent time today discussing her recent imaging. Her CT scan shows no evidence of recurrence. Her brain MRI shows stability or perhaps some improvement in the concerning lesion that had been followed previously. This is felt to be vascular or potentially as a result of old trauma. It does not have the typical findings of a metastasis. The patient and her daughter were happy to hear this. We discussed our plan moving forward for surveillance. I have recommended that she have a CT scan of the abdomen and pelvis in three months, and I do think it would be hahn for her to have at least one more brain MRI to assess for stability. They agreed to this plan. Also, of note, there is some rectal thickening on the follow-up CT scan. Remarkably, the patient has never had a screening colonoscopy at the age of 61. I have strongly recommended that she have this done as soon as possible. I will see her back in three months, or sooner if there are questions or concerns. CARMINE
== END 2017-05-23 14:34 | disposition home or self-care (01) ==
LOC: ONC 10:26
PROVIDERS: ATTEND Internal Medicine Medical Oncology
DX: Z08 Encounter for follow-up examination after completed treatment for malignant neoplasm (principal); Z85.42 Personal history of malignant neoplasm of other parts of uterus; G93.0 Cerebral cysts
CPT/HCPCS: 70553; 99212; A9577; J1642

== ENCOUNTER 2017-05-29 11:00 | Outpatient (RCR) | payer OTHER ==
[2017-01-23 17:09] VITALS: BP 108/65
[~2017-05-29 11:00] MED LIST changes: -ALTEPLASE RECOMB 2 MG VIAL IVP PRN; -DEXTROSE 5%(*) 100 ML BAG 100 ML IVPB PRN; -GADOBENATE 529MG/1ML 15ML VIAL IVP ONE; -HEPARIN FLSH (PORT) 500 UN/5ML IVP PRN; -LIDOCAINE/SOD BICARB 8.4% SYR ID PRN; -NS(*) 0.9% 100 ML BAG 100 ML IVPB PRN; -NS(*) 0.9% 500 ML BAG 500 ML IV PRN; -WATER FOR INJ,STERILE 20 ML IVP PRN
== END 2017-06-01 14:15 | disposition home or self-care (01) ==
LOC: RAON 11:00
PROVIDERS: ATTEND Radiology Radiation Oncology
DX: Z85.42 Personal history of malignant neoplasm of other parts of uterus (principal); Z92.21 Personal history of antineoplastic chemotherapy; Z92.3 Personal history of irradiation; Z90.722 Acquired absence of ovaries, bilateral; Z90.710 Acquired absence of both cervix and uterus; R53.83 Other fatigue
CPT/HCPCS: 99212

== ENCOUNTER → 2017-08-28 | Outpatient (CLI) | payer OTHER ==
[~2017-08-28] MED LIST changes: +LEVO88TA45 PO; +SERT-184 PO
== END ==
LOC: LAB 15:38
PROVIDERS: ATTEND Nurse Practitioner Family
DX: E03.9 Hypothyroidism, unspecified (principal)
CPT/HCPCS: 36415; 84443

== ENCOUNTER 2017-09-10 13:00 | Outpatient (RCR) | payer OTHER ==
[~2017-09-10 13:00] MED LIST changes: +ALTEPLASE RECOMB 2 MG VIAL IVP PRN; +DEXTROSE 5%(*) 100 ML BAG 100 ML IVPB PRN; +HEPARIN FLSH (PORT) 500 UN/5ML IVP PRN; +LIDOCAINE/SOD BICARB 8.4% SYR ID PRN; +NS(*) 0.9% 100 ML BAG 100 ML IVPB PRN; +NS(*) 0.9% 500 ML BAG 500 ML IV PRN; +WATER FOR INJ,STERILE 20 ML IVP PRN
[2017-09-10 13:15] VITALS: BP 100/67
[2017-09-10 13:47] LABS: PLATELET COUNT, AUTOMATED 159 K/uL (150-450)
== END 2017-09-12 13:42 | disposition home or self-care (01) ==
LOC: SPU 13:00
PROVIDERS: ATTEND Internal Medicine Medical Oncology
DX: C54.1 Malignant neoplasm of endometrium (principal); G93.0 Cerebral cysts; R42 Dizziness and giddiness; R41.0 Disorientation, unspecified
CPT/HCPCS: 85025; 86304; 96523; J1642; 82040; 82247; 82310; 82374; 82435; 82565; 82947; 84075; 84132; 84155; 84295; 84450; 84460; 84520

== ENCOUNTER → 2017-09-10 | Outpatient (CLI) | payer OTHER ==
[~2017-09-10] MED LIST changes: +IBUP-136 PO; -IBUP200C71 PO
--- NOTE | 2017-09-11 15:21 | RADIOLOGY IMAGING REPORT ---
FACILITY: [facility] - [place] PATIENT NAME: NANDINI LANTIGUA : [id number] MR: [id number] V: [id number] EXAM DATE: [id number] ORDERING PHYSICIAN: IRENE TOUSSAINT TECHNOLOGIST: Molly Banks PROCEDURE:BILATERAL DIGITAL SCREENING MAMMOGRAM WITH CAD ASSISTED INTERPRETATION & 3D TOMOSYNTHESIS COMPARISON:None. INDICATIONS:screening HISTORY: Endometrial Cancer FINDINGS: There is a focal area of architectural distortion and clustered microcalcifications in the Left breast 1 o'clock position, 3 cm from the nipple which warrants additional evaluation. Some other scattered benign appearing microcalcifications in the Left and Right breasts are noted. The Right breast demonstrates no concerning masses or clustered microcalcifications. Benign vascular calcifications are noted. DIAGNOSTIC CATEGORY 0--INCOMPLETE: NEED ADDITIONAL IMAGING EVALUATION. RECOMMENDATIONS: ADDITIONAL MAMMOGRAPHIC VIEWS REQUIRED: LEFT BREAST. ULTRASOUND: LEFT BREAST. IMPRESSION: BIRADS 0: Incomplete. 1. Recommend additional evaluation of the focal area of architectural distortion and clustered microcalcifications in the Left breast 1 o'clock position, 3cm from the nipple. 2. I would recommend Spot compression, CC & ML 3D Tomographic views and a full Left ML 3D Tomographic view. I would suggest an Ultrasound if indicated by additional views. Dictated by: Leeroy Nowak M.D. on 09/11/2017 at 11:16 Transcribed by: LAMAR on 09/11/2017 at 15:11 Approved by: Leeroy Nowak M.D. on 09/11/2017 at 15:20 [facility]
== END ==
LOC: MAMO 00:35
PROVIDERS: ATTEND Emergency Medicine
DX: Z12.31 Encounter for screening mammogram for malignant neoplasm of breast (principal); R92.1 Mammographic calcification found on diagnostic imaging of breast
CPT/HCPCS: 77063; 77067

== ENCOUNTER 2017-09-11 14:30 | Outpatient (RCR) | payer OTHER ==
[2017-01-23 17:09] VITALS: BP 108/65
[~2017-09-11 14:30] MED LIST changes: -ALTEPLASE RECOMB 2 MG VIAL IVP PRN; -DEXTROSE 5%(*) 100 ML BAG 100 ML IVPB PRN; -HEPARIN FLSH (PORT) 500 UN/5ML IVP PRN; -LIDOCAINE/SOD BICARB 8.4% SYR ID PRN; -NS(*) 0.9% 100 ML BAG 100 ML IVPB PRN; -NS(*) 0.9% 500 ML BAG 500 ML IV PRN; -WATER FOR INJ,STERILE 20 ML IVP PRN
== END 2017-09-12 13:41 | disposition home or self-care (01) ==
LOC: RAON 14:30
PROVIDERS: ATTEND Radiology Radiation Oncology
DX: Z85.42 Personal history of malignant neoplasm of other parts of uterus (principal); Z92.21 Personal history of antineoplastic chemotherapy; Z92.3 Personal history of irradiation; Z90.722 Acquired absence of ovaries, bilateral; Z90.710 Acquired absence of both cervix and uterus; R53.83 Other fatigue
CPT/HCPCS: 99213

== ENCOUNTER → 2017-10-04 | Outpatient (CLI) | payer OTHER ==
[~2017-10-04] MED LIST changes: +DIA5 PO
--- NOTE | 2017-10-05 08:40 | RADIOLOGY IMAGING REPORT ---
FACILITY: [facility] - [place] PATIENT NAME: NANDINI LANTIGUA : [id number] MR: [id number] V: [id number] EXAM DATE: [id number] ORDERING PHYSICIAN: IRENE TOUSSAINT TECHNOLOGIST: Shaila Desai RDMS(ABD,OBGYN,BR),RVT PROCEDURE:US LEFT BREAST COMPARISON:None. INDICATIONS:Abnormal mammogram. FINDINGS: In the approximate 1 o'clock position of the Left breast there is an area of mild architectural distortion and probable dilated ducts. This is in the location of the microcalcifications and spiculation seen on Today's mammogram although they were better delineated on the mammogram. No other abnormality in the Left breast is identified. No abnormal lymph nodes were identified in the Left axilla. DIAGNOSTIC CATEGORY 4--SUSPICIOUS FOR MALIGNANCY. RECOMMENDATIONS: STEREOTACTIC BREAST BIOPSY: LEFT BREAST. IMPRESSION: BIRADS 4: Suspicious for malignancy. Stereotactic biopsy of the microcalcifications in the vicinity of architectural distortion in the upper outer quadrant of the Left breast recommended. Dictated by: Robyn Camara M.D. on 10/04/2017 at 15:41 Transcribed by: GEO on 10/05/2017 at 7:59 Approved by: Robyn Camara M.D. on 10/05/2017 at 8:37 [facility]
--- NOTE | 2017-10-05 08:40 | RADIOLOGY IMAGING REPORT ---
FACILITY: [facility] - [place] PATIENT NAME: NANDINI LANTIGUA : [id number] MR: [id number] V: [id number] EXAM DATE: ORDERING PHYSICIAN: IRENE TOUSSAINT TECHNOLOGIST: Molly Banks PROCEDURE:LEFT DIGITAL DIAGNOSTIC MAMMOGRAM WITH CAD ASSISTED INTERPRETATION & 3D TOMOSYNTHESIS COMPARISON:Prior mammogram 09/10/17. INDICATIONS:further evaluation FINDINGS: The patient returns for lateral medial view of the Left breast and Spot compression views in the Left CC & MLO projections with 3D breast Tomosynthesis. They demonstrated an area of spiculated architectural distortion in the upper outer quadrant of the Left breast in the middle 1/3 containing microcalcifications. This finding is extremely concerning for malignancy. A Stereotactic biopsy is recommended for further evaluation. DIAGNOSTIC CATEGORY 4--SUSPICIOUS FOR MALIGNANCY. RECOMMENDATIONS: STEREOTACTIC BREAST BIOPSY: LEFT BREAST. IMPRESSION: BIRADS 4: Suspicious for malignancy. Stereotactic biopsy of the microcalcifications and area of architectural distortion upper outer quadrant of the Left breast recommended. Dictated by: Robyn Camara M.D. on 10/04/2017 at 15:44 Transcribed by: GEO on 10/05/2017 at 7:53 Approved by: Robyn Camara M.D. on 10/05/2017 at 8:37 [facility]
== END ==
LOC: MAMO 01:25
PROVIDERS: ATTEND Emergency Medicine
DX: N63.23 Unspecified lump in the left breast, lower outer quadrant (principal)
CPT/HCPCS: 77061; 77065

== ENCOUNTER 2017-10-09 00:44 | Day surgery (SDC) | payer OTHER ==
[~2017-10-09] VITALS: Ht 153.7 cm; Wt 53.1 kg
[2017-10-09] VITALS (9 sets, daily range): BP systolic 91–126; BP diastolic 62–77
[~2017-10-09 00:44] MED LIST changes: +NORMOSOL R SOLN(*) 1000 ML BAG 1,000 ML IV PRN
[2017-10-09] MEDS ORDERED: NORMOSOL R SOLN(*) 1000 ML BAG 1,000 ML IV PRN (05:35)
[2017-10-09] MEDS ORDERED: PROPOFOL EMUL(*) 10MG/ML 20 ML 20 ML ONE ×2 (07:09→09:48)
[2017-10-09] MEDS ORDERED: LIDOCAINE/SOD BICARB 8.4% SYR ID ONE (08:40)
--- NOTE | 2017-10-09 10:16 | Short(Outpt) Discharge Summary ---
Discharge Summary Reason for Hosp/Final Diag: (1) Family history of colorectal cancer Hospital Course & Plan: Colonoscopy completed without problems, normal. Departure Discharge to: Home, Self Care Discharge Instructions Home Meds Active Scripts Diazepam (VALIUM) 5 Mg Tablet, 5 MG PO ONCE, #1 TAB Take half an hour before procedure Prov:IRENE TOUSSAINT MD 10/05/17 Ondansetron (ZOFRAN ODT) 8 Mg Tab.rapdis, 8 MG PO Q8H Y for NAUSEA, #90 TAB 1 Refill Prov:ALEX GOSS MD 09/24/17 Levothyroxine Sodium (LEVOTHYROXINE SODIUM) 88 Mcg Tablet, 88 MCG PO QDAY, #45 TAB Prov:IRENE TOUSSAINT MD 08/30/17 Reported Medications Sertraline Hcl (SERTRALINE HCL) 50 Mg Tablet, 1 TAB PO QDAY Y for ANXIETY, TAB 09/28/17 Lorazepam (ATIVAN) 0.5 Mg Tablet, 0.5 MG PO HS Y for ANXIETY 03/27/17 Acetaminophen (TYLENOL) 325 Mg Tablet, 325 MG PO Y for PAIN, TAB 03/27/17 Diet: Regular Activity: As Tolerated Special Instructions: Your colonoscopy was completed without any problems and your prep was excellent (Good Job!!). Your colonoscopy was normal. I recommend that you undergo another colonoscopy in 5 years due to your family history. ALEX GOSS MD Oct 09, 2017 10:16
[2017-10-09] MEDS ORDERED: LEVO88TA45 PO (12:22)
[2017-10-10] MEDS ORDERED: LEVO88TA45 PO (13:33)
== END 2017-10-09 11:40 | disposition home or self-care (01) ==
LOC: OR 00:44
PROVIDERS: ATTEND Surgery
DX: Z12.11 Encounter for screening for malignant neoplasm of colon (principal); E03.9 Hypothyroidism, unspecified; F41.9 Anxiety disorder, unspecified; K21.9 Gastro-esophageal reflux disease without esophagitis; Z85.42 Personal history of malignant neoplasm of other parts of uterus; Z90.710 Acquired absence of both cervix and uterus; Z80.0 Family history of malignant neoplasm of digestive organs
CPT/HCPCS: 00812; 45378; J2704

== ENCOUNTER → 2017-10-10 | Outpatient (CLI) | payer OTHER ==
[~2017-10-10] MED LIST changes: -NORMOSOL R SOLN(*) 1000 ML BAG 1,000 ML IV PRN
[2017-10-10 10:29] LABS: INR 0.91
== END ==
LOC: LAB 10:02
PROVIDERS: ATTEND Emergency Medicine
DX: E03.9 Hypothyroidism, unspecified (principal); R92.8 Other abnormal and inconclusive findings on diagnostic imaging of breast
CPT/HCPCS: 36415; 84443; 85610

== ENCOUNTER → 2017-10-15 | Outpatient (CLI) | payer OTHER ==
[~2017-10-15] MED LIST changes: +LIDO/EPI 1% MDV 1:100,000 20ML INFIL ONE; +NS(*) 0.9% 250 ML BAG 250 ML IVPB ONE; +WATER FOR INJ STERILE ONE
--- NOTE | 2017-10-16 09:08 | RADIOLOGY IMAGING REPORT ---
FACILITY: [facility] [place] PATIENT NAME: NANDINI LANTIGUA : [id number] MR: [id number] V: [id number] EXAM DATE: ORDERING PHYSICIAN: IRENE TOUSSAINT TECHNOLOGIST: Molly Banks PROCEDURE: BREAST SPECIMEN COMPARISON: None. INDICATIONS: abnormal mammogram FINDINGS: Multiple core samples from today's Left breast stereotactic biopsy were submitted. There are multiple calcifications in multiple core samples CONCLUSION: As above. Dictated by: Robyn Camara M.D. on 10/15/2017 at 10:54 Transcribed by: WENDIE on 10/15/2017 at 14:30 Approved by: Robyn Camara M.D. on 10/16/2017 at 9:06 [facility]
--- NOTE | 2017-10-16 09:08 | RADIOLOGY IMAGING REPORT ---
FACILITY: [facility] PATIENT NAME: NANDINI LANTIGUA : [id number] MR: [id number] V: [id number] EXAM DATE: [id number] ORDERING PHYSICIAN: IRENE TOUSSAINT TECHNOLOGIST: Molly Banks PROCEDURE: STEREOTACTIC LEFT BREAST BIOPSY COMPARISON: None. INDICATIONS: abnormal mammogram FINDINGS: Informed consent was obtained. The patient was placed prone in the stereotactic biopsy table. The indeterminate calcifications were localized with additional stereo pair images. The Left breast was prepped in the usual sterile fashion. Local anesthesia was accomplished with 1% Lidocaine. Deep anesthesia was accomplished with 1% Lidocaine with epinephrine. Twelve 9 gauge vacuum assisted core biopsies were obtained through the indeterminate calcifications in the upper outer quadrant of the Left breast. Specimen radiograph demonstrated multiple calcifications in multiple core samples. A biopsy clip was placed. The procedure was accomplished without apparent complication. CONCLUSION: Successful stereotactic Left breast biopsy. Pathology results pending. Dictated by: Robyn Camara M.D. on 10/15/2017 at 10:57 Transcribed by: WENDIE on 10/15/2017 at 14:28 Approved by: Robyn Camara M.D. on 10/16/2017 at 9:05 [facility]
--- NOTE | 2017-10-16 09:08 | RADIOLOGY IMAGING REPORT ---
FACILITY: [facility] PATIENT NAME: NANDINI LANTIGUA : [id number] MR: [id number] V: [id number] EXAM DATE: ORDERING PHYSICIAN: IRENE TOUSSAINT TECHNOLOGIST: Molly Banks PROCEDURE:LEFT DIGITAL DIAGNOSTIC MAMMOGRAM COMPARISON:None. INDICATIONS:abnormal mammogram/Post stereotactic biopsy for clip placement FINDINGS: Stereotactic biopsy clip is noted in the upper outer quadrant of the Left breast. The clip appears to be slightly lateral & slightly anterior to the indeterminate calcifications & area of architectural distortion. Today's specimen radiograph, however, demonstrated numerous calcifications within numerous core samples & there appear to be less calcifications in the upper outer quadrant of the Left breast following the biopsy. Therefore this may represent clip migration. Pathology results are pending. IMPRESSION: 1. As above. Dictated by: Robyn Camara M.D. on 10/15/2017 at 10:59 Transcribed by: WENDIE on 10/15/2017 at 14:21 Approved by: Robyn Camara M.D. on 10/16/2017 at 9:05 [facility]
== END ==
LOC: MAMO 01:28
PROVIDERS: ATTEND Emergency Medicine
DX: R92.1 Mammographic calcification found on diagnostic imaging of breast (principal)
CPT/HCPCS: 19081; 77061; 77065; 88305; 88344

== ENCOUNTER 2017-12-25 14:45 | Outpatient (RCR) | payer OTHER ==
[2017-01-23 17:09] VITALS: BP 108/65
[~2017-12-25 14:45] MED LIST changes: -LIDO/EPI 1% MDV 1:100,000 20ML INFIL ONE; -NS(*) 0.9% 250 ML BAG 250 ML IVPB ONE; -WATER FOR INJ STERILE ONE
== END 2018-02-22 15:35 | disposition home or self-care (01) ==
LOC: RAON 14:45
PROVIDERS: ATTEND Radiology Radiation Oncology
DX: C55 Malignant neoplasm of uterus, part unspecified (principal)
CPT/HCPCS: 99212

== ENCOUNTER → 2018-02-21 | Outpatient (CLI) | payer OTHER | LOC: LAB 10:18 | PROVIDERS: ATTEND Surgery | DX: L82.1 Other seborrheic keratosis (principal) | CPT/HCPCS: 88305 ==

== ENCOUNTER 2018-05-30 10:13 | Outpatient (RCR) | payer OTHER ==
[2018-03-11 14:25] LABS: PLATELET COUNT, AUTOMATED 168 K/uL (150-450)
[2018-03-14 10:08] VITALS: BP 111/69
--- NOTE | 2018-03-16 20:22 | ONCOLOGY FOLLOW UP NOTE ---
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 HISTORY OF PRESENT ILLNESS Patient is a 62-year-old female who was seen today in three-month followup for the above diagnoses. Overall, she feels well. CA-125 has remained normal since completing treatment. Her Port-A-Cath was removed on 03/04/18, and this was more difficult than she expected as there was some scarring. Energy is good, and she denies significant fatigue. Her weight is stable. Her only complaint is that of some occasional mid back pain which tends to be worse after standing up washing dishes. She describes this for several months. Pain is not persistent. ONCOLOGY HISTORY Patient presented in May 2016 with abnormal uterine bleeding. Underwent uterine biopsy which revealed serous adenocarcinoma. She underwent da Chintan robotic total laparoscopic hysterectomy with bilateral pelvic lymph node dissection as well as diagnostic laparoscopy with lysis of adhesions on 07/10/16. There was evidence of lymphovascular invasion, and a periaortic lymph node was positive for metastatic serous carcinoma. PET CT showed no concerning findings above the diaphragm. The right periaortic node was 11 x 11 mm with an SUV of 6.8 with multiple hypermetabolic right common iliac and bilateral medial external iliac lymph nodes consistent with metastases. She completed four cycles of carboplatin and Taxol. She then underwent external radiation with cisplatin as well as vaginal brachytherapy, completed January 2017. Mammogram in August 2017 showed an architectural distortion with microcalcifications in the left breast. She underwent stereotactic biopsy on 10/15/17, and pathology was positive for high-grade DCIS with comedonecrosis and microinvasion. ER/LA negative, HER2/rodrick 2+, and Ki-67 of 32.8%. She underwent left mastectomy and sentinel node biopsy in November 2017. DCIS component was 6.4 cm with negative margins. Lymph nodes were negative. ER/LA negative. MEDICAL HISTORY 1. Stage IIIC serous endometrial adenocarcinoma, June 2016. 2. Graves disease, status post radioiodine therapy. 3. Left breast DCIS, September 2017. SURGICAL HISTORY 1. da Chintan robotic total laparoscopic hysterectomy with bilateral pelvic lymph node dissection as well as diagnostic laparoscopy and lysis of adhesions, June 2016. 2. Left arthroscopic knee surgery for meniscus repair. 3. Left mastectomy, November 2017. FAMILY HISTORY Maternal grandmother had breast cancer in her 60s. She also had colon cancer. Brother had melanoma. Another brother with liver cancer. Another brother with thyroid cancer. SOCIAL HISTORY Patient is . They have three grown daughters. She worked at the [employer]. She quit smoking, but did not smoke much. She is a social drinker. No use of illicit drugs. MEDICATIONS 1. Synthroid. 2. Zoloft. 3. Ativan p.r.n. 4. Multivitamins. ALLERGIES CORTISONE caused nausea. REVIEW OF SYSTEMS A 12-point review of systems is performed and is negative except as stated above. PHYSICAL EXAMINATION VITAL SIGNS: Weight 60.1 kg. BP 111/69, P 58, R 16, temp 97.2, O2 sat 94%. GENERAL: Patient is a well-developed, well-nourished female in no acute distress. HEAD: Normocephalic, atraumatic. EYES: Sclerae anicteric. MOUTH: Moist mucous membranes. No lesions. NECK: Supple. No palpable adenopathy. BREASTS: Status post left mastectomy with some scar tissue present. No evidence of recurrence. Right breast is without masses. LUNGS: Clear bilaterally. CARDIOVASCULAR: Heart rate regular, 58 per minute, without murmur, S3, or S4. ABDOMEN: Soft, nontender, with active bowel sounds. No organomegaly. EXTREMITIES: No edema. NEUROLOGIC: Nonfocal. LABORATORIES CBC on 03/11/18 showed a WBC of 3.0, ANC of 1.6, hemoglobin 13.8, hematocrit 41.0, platelets 168,000. CMP was within normal limits. CA-125 was 9. IMPRESSION AND PLAN The patient is a 62-year-old female diagnosed with stage IIIC serous endometrial adenocarcinoma in June 2016. She completed adjuvant chemotherapy, followed by chemoradiation in December 2016. She was found to have ductal carcinoma in situ in September 2017 and underwent left mastectomy on 11/27/17 with negative margins and negative lymph nodes, ER/LA negative. 1. Endometrial adenocarcinoma. No signs or symptoms of disease recurrence. CA-125 has remained stable, today at 9. I have recommended she follow up with Dr. Tracy, urology surgeon, as she has not seen Gynecology for some time. 2. Left breast ductal carcinoma in situ. No signs or symptoms of disease recurrence. As tumor was ER/LA negative, no indication for endocrine therapy. 3. Mid back pain. She describes this as occurring over several months. It is worse when standing, but resolves quickly. We discussed starting with an x-ray of the thoracic spine. She is concerned about finances and will decide whether she wants to pursue this. 4. Leukopenia. White count is 3.0, ANC is 1.6. On review of labs, she has always had mild leukopenia, but has not had issues with recurrent infections. 5. Breast surveillance. Will repeat right breast mammogram in September 2018, ordered today. 6. Follow up in three months for continued care, earlier if there is a problem. CARMINE
[2018-05-23 14:33] VITALS: BP 111/69
[2018-05-23 14:33] LABS: PLATELET COUNT, AUTOMATED 170 K/uL (150-450)
[2018-05-30 10:28] VITALS: BP 110/68
--- NOTE | 2018-05-30 14:33 | [facility] ONCOLOGY NOTE ---
EVENT DATE: May 30, 2018 DIAGNOSES 1. High-grade ductal carcinoma in situ of the left breast with microinvasion. 2. Stage IIIC serous endometrial adenocarcinoma. CHIEF COMPLAINT Patient is here today for followup of her DCIS of the left breast and endometrial carcinoma. ONCOLOGY HISTORY Patient is a 62-year-old female who was diagnosed with a stage IIIC serous endometrial adenocarcinoma, status post robotic total laparoscopic hysterectomy and bilateral pelvic lymph node dissection, lower periaortic lymph node sampling done on July 10, 2016, followed by adjuvant chemoradiation started on the December 08, 2016, and the patient treated with radiation therapy with concurrent cisplatin completed December 2016. She went in to complete remission after that. On September 11, 2017, patient had bilateral screening mammogram which showed left breast area at 1 o'clock with architectural distortion and clustered microcalcification. On October 04, 2017, patient had left breast ultrasound which showed also an abnormal area at 1 o'clock of architectural distortion and a probable dilated duct suspicious for malignancy. On October 15, 2017, patient had left breast stereotactic biopsy, and the pathology came back positive for high-grade DCIS with comedonecrosis and microinvasion. ER/MT negative, HER2/rodrick 2+, and Ki-67 was 32.8%. On November 03, 2017, patient had bilateral MRI of the breasts. The right breast was normal, but the left breast showed multiple irregular masses involving the central left breast. Patient is scheduled to have left mastectomy and sentinel lymph node biopsy to be done on November 27, 2017. Patient had left breast mastectomy done on November 27, 2017 with sentinel lymph node biopsy and lymph node dissection. The patient was found to have DCIS about 6.4 cm in the upper-outer quadrant and the lower-outer quadrant of the left breast, grade 3, comedo type, with negative margins. One sentinel lymph node and five nonsentinel lymph nodes were negative for metastasis. ER/MT were negative. HISTORY OF PRESENT ILLNESS Patient is here today for followup of her endometrial cancer and left DCIS with microinvasion. She is doing very well currently and apart from having right sciatica pain patient does not have any other problems. She denies any hot flashes. PAST MEDICAL HISTORY 1. Serous endometrial adenocarcinoma. 2. Graves disease, status post radioiodine therapy. PAST SURGICAL HISTORY 1. Robotic debulking surgery for her endometrial cancer done on the June. 2. Left arthroscopic knee surgery for meniscus repair. FAMILY HISTORY Maternal grandmother had breast cancer in her 60s. She had also colon cancer. Brother had melanoma. Another brother with liver cancer. Another brother with thyroid cancer. SOCIAL HISTORY Patient is with three daughters. She worked at the [employer], and she gave up her job when she got her cancer. She quit smoking, but did not smoke much. She is social drinking, and no abuse of illicit drugs. CURRENT MEDICATIONS 1. Synthroid 88 mcg daily. 2. Zoloft 100 mg daily. 3. Ativan p.r.n. for insomnia. 4. Multivitamins. ALLERGIES CORTISONE which caused nausea. REVIEW OF SYSTEMS CONSTITUTIONAL: No appetite or weight change. Patient has chills. No fever or sweating. No recent infection. HEENT: Ears: No tinnitus or hearing problem. Nose: No nasal discharge or epistaxis. Throat: No sore throat or mouth ulcers. Eyes: No diplopia or visual changes. RESPIRATORY: No shortness of breath. She has a dry cough sometimes. No expectoration or hemoptysis. CARDIOVASCULAR: No chest pain, orthopnea, or paroxysmal nocturnal dyspnea (PND). No edema. No palpitations. GASTROINTESTINAL: No nausea or vomiting. No diarrhea or constipation. No change in bowel movements. No heartburn or swallowing difficulties. No abdominal pain. No jaundice. No hematemesis, melena, or rectal bleeding. GENITOURINARY: No hematuria or dysuria. MUSCULOSKELETAL: She has pain under the left arm a bit. NEUROLOGICAL: Patient has right sciatica pain, which is intermittent, especially after exercising. HEMATOLOGIC/LYMPHATIC: She had bruising at the site of her surgery. She had also a cystic mass at the site of her surgery either due to hematoma or seroma. As per patient, she had 18 mL of blood aspirated recently by her surgeon in [place]. No weakness or fatigue. No enlarged lymph nodes. SKIN: No skin rash or lumps. PSYCHIATRIC: No anxiety or depression. PHYSICAL EXAMINATION GENERAL: Looks stable. Well developed, well nourished, and in no acute distress. VITAL SIGNS: Blood pressure 110/68, pulse 71 per minute, respirations 16 per minute, temperature 97.7, pulse ox 95% on room air. HEENT: Head: Atraumatic. No sinus tenderness to palpation. Eyes: No icterus or conjunctivitis. Mouth and throat: No oral thrush or mucositis. NECK: Supple. No cervical or supraclavicular lymphadenopathy. LUNGS: Clear to auscultation and percussion bilaterally. HEART: Regular rate and rhythm. No gallops, murmurs, clicks, or rubs. ABDOMEN: Soft and lax. No tenderness. No hepatosplenomegaly. No masses. EXTREMITIES: No cyanosis, clubbing, or edema. LYMPHATICS: No peripheral lymphadenopathy. NEUROLOGICAL: Conscious, alert, and oriented times three. No focal motor or sensory deficits. PSYCHIATRIC: Mood and affect appear normal. SKIN: Left chest wall showed a cystic mass at the site of her left breast with bruising of the skin of the same area. DIAGNOSTIC DATA CBC showed white count 3,000, hemoglobin 13.6, hematocrit 40.7, platelets 170,000. ANC is 1.7 and ALC is 0.9. CA-125 is normal at 10. ASSESSMENT 1. High-grade ductal carcinoma in situ with microinvasion of the left breast, status post stereotactic biopsy of the left breast done on October 15, 2017. ER/MT negative, HER2/rodrick was 2+, and Ki-67 was 32.8. MRI of the breast showed normal right breast which was done on November 03, 2017, and left breast showed multiple irregular masses. The patient had left breast mastectomy with sentinel lymph node biopsy and sentinel lymph node dissection done on November 27, 2017, and the pathology came back positive for ductal carcinoma in situ, left breast, 6.4 cm in size with negative margins. There was comedonecrosis and ductal carcinoma in situ was grade 3. Six lymph nodes, one sentinel and five nonsentinel, were negative for metastasis. ER/MT negative. Margins were clear. As her tumor was ER/MT negative and she has only microinvasion and as she had mastectomy of the left breast, there was no indication of adjuvant chemotherapy, radiation therapy or hormonal therapy. Patient currently in complete remission and I am planning to see her again in three months from now with CBC and chem panel. 2. Stage IIIC serous endometrial adenocarcinoma, status post laparoscopic total hysterectomy with bilateral pelvic lymph node dissection and lower periaortic lymph node sampling done on July 10, 2016, followed by adjuvant chemoradiation with cisplatin given concurrently with radiation therapy between November 28, 2016 to December 2016. Her CA-125 currently is normal at 10. I am planning to see her again in three months with CBC, chem panel and CA-125. PLAN 1. Continue followup. 2. Patient to return in three months with CBC, chem panel, and CA-125. 3. Patient to contact us for any new concerns or complaints. CARMINE
== END 2018-06-06 ==
LOC: ONC 10:13
PROVIDERS: ATTEND Internal Medicine Hematology
DX: D05.12 Intraductal carcinoma in situ of left breast (principal); C54.1 Malignant neoplasm of endometrium; Z17.1 Estrogen receptor negative status [ER-]; Z92.21 Personal history of antineoplastic chemotherapy; Z92.3 Personal history of irradiation; Z87.891 Personal history of nicotine dependence; Z79.899 Other long term (current) drug therapy; Z90.12 Acquired absence of left breast and nipple; M54.9 Dorsalgia, unspecified
CPT/HCPCS: 36415; 82040; 82247; 82310; 82374; 82435; 82565; 82947; 84075; 84132; 84155; 84295; 84450; 84460; 84520; 85025; 86304; 99212

== ENCOUNTER 2018-08-27 16:13 | Outpatient (RCR) | payer OTHER ==
[2017-01-23 17:09] VITALS: BP 108/65
[~2018-08-27 16:13] MED LIST changes: +LEV112 PO
[2018-09-02] MEDS ORDERED: SERT-184 PO (13:02)
== END 2018-08-28 15:09 | disposition home or self-care (01) ==
LOC: RAON 16:13
PROVIDERS: ATTEND Radiology Radiation Oncology
DX: Z02.9 Encounter for administrative examinations, unspecified (principal)

== ENCOUNTER → 2018-09-05 | Outpatient (CLI) | payer OTHER | LOC: LAB 09:56 | PROVIDERS: ATTEND Emergency Medicine | DX: E78.5 Hyperlipidemia, unspecified (principal); E03.9 Hypothyroidism, unspecified; E11.9 Type 2 diabetes mellitus without complications | CPT/HCPCS: 36415; 82465; 83036; 83718; 84443; 84478 ==